=== PATIENT | male | born 1965 | race Caucasian/White ===

== ENCOUNTER 2017-10-01 18:58 | Emergency (ER) | payer OTHER | END 2017-10-01 21:47 | disposition home or self-care (01) | LOC: FTE 18:58 | DX: N48.29 Other inflammatory disorders of penis (principal); Z87.891 Personal history of nicotine dependence | CPT/HCPCS: 99283; Z7502 ==

== ENCOUNTER 2018-04-08 18:37 | Emergency (ER) | payer OTHER | END 2018-04-08 23:32 | disposition home or self-care (01) | LOC: FTE 18:37 | DX: N48.1 Balanitis (principal) | CPT/HCPCS: 99283; Z7502 ==